=== PATIENT | male | born 1960 | race Caucasian/White ===

== ENCOUNTER 2020-11-04 12:05 | Emergency (ER) | payer SELFPAY ==
[~2020-11-04] VITALS: Ht 182.9 cm; Wt 104.0 kg
[2020-11-04 12:39] LABS: HEMOGLOBIN 11.1 g/dl (14.0-18.0); IMMATURE GRANULOCYTES 0.7 % (0.0-5.0); MEAN CELL VOLUME 93.3 fL CALC (80.0-100.0); MEAN CORPUSCULAR HGB 28.8 pG CALC (26.0-32.0); MEAN CORPUSCULAR HGB CONC 30.8 g/dL CAL (32.0-36.0); NEUT# 3.9 thou/uL (1.82-7.42); RED BLOOD COUNT 3.86 mill/uL (4.70-6.10); RED CELL DISTRI WIDTH 13.8 % (11.5-15.5)
[2020-11-04 12:52] LABS: ALBUMIN 3.5 g/dL (3.2-5.0); ALKALINE PHOSPHATASE 52 u/l (38-126); ANION GAP 19 (6-22 (CALC)); BILIRUBIN, TOTAL 0.2 mg/dL (0.0-1.4); BUN 13 mg/dL (9-20); BUN/CREATININE RATIO 18 (12-20 (CALC)); CARBON DIOXIDE 20 mmol/l (22-30); CHLORIDE 104 mmol/l (95-108); CREATININE 0.7 mg/dL (0.7-1.3); ETHYL ALCOHOL 208 mg/dl (0-30); GFR > 60 ML/MIN (>=60 (CALC)); GFR FOR AFR.AMER. > 60 ML/MIN (>=60 (CALC)); LIPASE 126 u/l (23-300); POTASSIUM 3.7 mmol/l (3.5-5.1); SGOT/AST 40 u/l (17-59); SODIUM 139 mmol/l (137-146); TOTAL PROTEIN 6.2 g/dL (6.3-8.2)
[2020-11-04 13:04] LABS: MYOGLOBIN 182 ng/mL (0 - 121)
[2020-11-04 16:26] LABS: URINE BILIRUBIN - DIPSTICK NEGATIVE (NEGATIVE); URINE BLOOD DIPSTICK NEGATIVE (NEGATIVE); URINE CLARITY CLEAR; URINE COLOR YELLOW; URINE GLUCOSE - DIPSTICK NEGATIVE (NEGATIVE); URINE KETONE NEGATIVE (NEGATIVE); URINE LEUK ESTERASE NEGATIVE (Negative); URINE NITRITE - DIPSTICK NEGATIVE (Negative); URINE PROTEIN - DIPSTICK NEGATIVE (NEG-TRACE); URINE SPECIFIC GRAVITY 1.025; URINE UROBILINOGEN - DIPSTICK 0.2 E.U./dL (0.2)
[2020-11-04 17:06] LABS: ACT PARTIAL THROMBO TIME 22.8 SECONDS (20.0-32.5); PROTHROMBIN TIME 10.3 SECONDS (9.0-12.5)
[2020-11-04 17:35] VITALS: BP 161/78
== END 2020-11-04 17:35 | disposition short-term general hospital (02) | DRG 948 ==
LOC: ED 12:05
PROVIDERS: Emergency Medicine
PROC: 0HQKXZZ Repair Right Lower Leg Skin, External Approach (ICD-10-PCS; principal; 2020-11-04)
DX: R79.89 Other specified abnormal findings of blood chemistry (principal); I44.7 Left bundle-branch block, unspecified; S81.811A Laceration without foreign body, right lower leg, initial encounter; M54.5 Low back pain; M25.511 Pain in right shoulder; F10.129 Alcohol abuse with intoxication, unspecified; I10 Essential (primary) hypertension; E11.9 Type 2 diabetes mellitus without complications; F17.210 Nicotine dependence, cigarettes, uncomplicated; W17.89XA Other fall from one level to another, initial encounter; Y93.89 Activity, other specified; Y92.69 Other specified industrial and construction area as the place of occurrence of the external cause; Y99.0 Civilian activity done for income or pay; Z20.822 Contact with and (suspected) exposure to COVID-19
CPT/HCPCS: J1644; Q9967